=== PATIENT | male | born 1985 | race Caucasian/White ===

== ENCOUNTER 2017-10-14 00:05 | Inpatient (IN) | payer BC, OTHER ==
[~2017-10-14] VITALS: Ht 190.5 cm; Wt 92.5 kg
--- NOTE | 2017-10-14 00:05 | NUR ---
Pre admission note Pt seen in intake office. Pt appears intoxicated but in stable condition. V/S WNL. Policies on medication disposal explained to and understood by patient. Will admit to unit. Will continue to monitor.
--- NOTE | 2017-10-14 00:20 | NUR ---
Admission note Pt is a 31 yo male, A+Ox4, presenting to [facility] for ETOH/Benzo withdrawal. Pt has Allergies to Gluten, is on Full code status, and on Gluten free diet. Pt is 6'3" in height and 204 LBS. in weight. Pt has medical HX of HTN, Depression, Anxiety, Sleep apnea, and Asthma. Pt has family HX of Alcohol abuse from Mother. Pt has no primary care provider. Pt has been drinking alcohol for 12 years (5 months currently), has reached a level of 12-15 glasses of wine/daily, and last drink was "8 various drinks" on 10-13-17 @2100. Pt has been taking Ativan PO for 7 years (5 months currently), has reached a level of 0.5mg-1mg/daily, and last dose was 1mg on 10-13-17 @0600. Pt has been taking home medications, all of which have been reconciled in [facility]. Pt has HX of previous Detox/Rehab for 5 days in [place] in May 2017. Pt continued sobriety for 7 days to total 12 day sober and this was the pt's last time sober. Pt has never been a cigarette smoker. Pt appears intoxicated, well groomed, and having no apparent foul odor. Pt noted with flush face, sweat on forehead, dilated pupils, and s/s of anxiety, agitation, and restlessness. Pt is cooperative and compliant. Pt states "I need to quit drinking for the sake of my future." Pt states "I would like to go to Rehab after my treatment is completed here." Pt states "I used to be able to have just a couple of drinks here and there, but now i just binge for no reason. Pt denies any seizure, overdose, or delirium HX. Pt states "My common withdrawal symptoms are anxiety, depression, tremors, sweating, nausea, body aches." Pt stats "I live on my own." Pt states "I consider my family to be my support system." Pt has no HX of SI/HI. V/S WNL. Respirations even and unlabored. Will continue to monitor.
[2017-10-14 00:30] VITALS: BP 129/91
[2017-10-14] MEDS ORDERED: LORAZEPAM 2 MG/1 ML VIAL IM PRN (01:00)
[2017-10-14] MEDS ORDERED: ONDANSETRON 4 MG/2 ML VIAL IM PRN (01:00)
[2017-10-14] MEDS ORDERED: MIRALAX 17 GM POWD.PACK PO PRN (01:00)
[2017-10-14] MEDS ORDERED: LORAZEPAM 1 MG TABLET PO PRN ×2 (01:00)
[2017-10-14] MEDS ORDERED: DICYCLOMINE HCL 20 MG TABLET PO PRN (01:00)
[2017-10-14] MEDS ORDERED: ONDANSETRON ODT 4 MG TAB.RAPDIS SL PRN (01:00)
[2017-10-14] MEDS ORDERED: ACETAMINOPHEN 325 MG TABLET PO PRN (01:00)
[2017-10-14] MEDS ORDERED: MAG HYDROX/AL HYDROX/SIMETH 30 ML LIQUID UDC PO PRN (01:00)
[2017-10-14] MEDS ORDERED: diphenhydrAMINE 50 MG CAPSULE PO PRN (01:00)
[2017-10-14] MEDS ORDERED: THIAMINE HCL 200 MG/2 ML VIAL IM ONE (01:00)
[2017-10-14] MEDS ORDERED: IBUPROFEN 400 MG TABLET PO PRN (01:00)
[2017-10-14] MEDS ORDERED: MAGNESIUM HYDROXIDE 30 ML LIQUID UDC PO PRN (01:00)
[2017-10-14] MEDS ORDERED: LOPERAMIDE HCL 2 MG CAPSULE PO PRN (01:00)
[2017-10-14 01:13] LABS: BASOPHILS # (AUTO) 0.1 K/uL (0.0-8.0); BASOPHILS % (AUTO) 1.2 % (0.0-2.0); EOSINOPHILS % (AUTO) 0.7 % (0.0-7.0); HEMATOCRIT 44.9 % (36.7-47.1); HEMOGLOBIN 16.9 g/dL (12.5-16.3); LYMPHOCYTES # (AUTO) 2.4 K/uL (20.0-40.0); LYMPHOCYTES % (AUTO) 48.3 % (20.5-51.5); MEAN CORPUSCULAR HGB CONC 38 g/dL (32.5-36.3); MEAN CORPUSCULAR VOLUME 93.2 fL (73.0-96.2); MONOCYTES # (AUTO) 0.3 K/uL (2.0-10.0); MONOCYTES % (AUTO) 5.9 % (0.0-11.0); NEUTROPHILS # (AUTO) 2.2 K/uL (1.8-8.9); NEUTROPHILS % (AUTO) 43.9 % (38.5-71.5); PLATELET COUNT (AUTO) 228 K/uL (152-348); RED BLOOD CELL COUNT(AUTO) 4.82 MIL/uL (4.06-5.63); WHITE BLOOD COUNT (AUTO) 4.9 K/uL (3.6-10.2)
[2017-10-14 01:14] LABS: MEAN CORPUSCULAR HEMOGLOBIN 35.1 uug (23.8-33.4)
[2017-10-14 01:17] LABS: *AMPHETAMINE, URINE NEGATIVE (NEGATIVE); *BARBITURATE, URINE NEGATIVE (NEGATIVE); *CANNABINOID, URINE NEGATIVE (NEGATIVE); *COCCAINE, URINE NEGATIVE (NEGATIVE); *OPIATE, URINE NEGATIVE (NEGATIVE); *PHENCYCLIDINE SCREEN,URINE NEGATIVE (NEGATIVE)
[2017-10-14 01:27] LABS: THYROID STIMULATING HORMONE 1.857 mIU/mL (0.358-3.740)
[2017-10-14] MEDS ORDERED: LORA0.5T PO (02:18)
[2017-10-14] MEDS ORDERED: CETI-102 PO (02:18)
[2017-10-14] MEDS ORDERED: PEG15DRO2 OP (02:18)
[2017-10-14] MEDS ORDERED: ALBU18HF2 IH (02:18)
[2017-10-14] MEDS ORDERED: ONDA4TAB10 PO (02:18)
[2017-10-14] MEDS ORDERED: PARO10TA86 PO (02:18)
[2017-10-14] MEDS ORDERED: HYDR25TA4 PO (02:18)
[2017-10-14 04:25] VITALS: BP 124/85
--- NOTE | 2017-10-14 05:15 | NUR ---
PRN Ativan 1mg Pt c/o anxiety and noted with CIWA: 12. PRN Ativan 1mg given and tolerated well. Will reassess within 1 HR. Will continue to monitor.
--- NOTE | 2017-10-14 05:57 | NUR ---
PRN Ativan 1mg Reassessment Medication effective. Pt expresses reduction of anxiety with CIWA: 9. No s/s of ASE noted at this time. Respirations even and unlabored. Will continue to monitor.
--- NOTE | 2017-10-14 07:00 | NUR ---
End of shift note Newly admitted patient. Pt was continuously noted with anxiety, agitation, and restlessness. Pt remained in room for majority of remainder of shift except to get food from kitchen. Pt remained cooperative and compliant with all aspects of treatment. Pt is on PRN medications until further review from MD in AM. Pt was given PRN Ativan 1mg @0515. Pt slept for a total of 5 HRS. Last CIWA: 9 @0600. Respirations even and unlabored. Will endorse to day shift nurse.
--- NOTE | 2017-10-14 07:30 | NUR ---
Start of Shit Note Pt. is a 31 y/o male newly admitted for the medically managed withdrawal from ETOH and Benzodiazepines. Pt. is awaiting further assessment from MD brandt and currently ordered PRN Ativan to manage withdrawal symptoms. Endorsed pt. has a medical history of HTN, Anxiety, Depression, Sleep Apnea and Asthma. Endorsed pt. came in slightly intoxicated and last CIWA of 9 at 0600. Received pt. in room laying in bed face down with eyes closed. No signs of SOB noted. Pt. reactive to name and touch but immediately goes back to sleep. Bed position low, side rails up X [address] Will continue to monitor pt.'s behavior for safety.
[2017-10-14 08:00] VITALS: BP 137/91
--- NOTE | 2017-10-14 08:08 | NUR ---
PRN Medication Pt. in room, anxious constantly shifting in bed, irritable, complaining of 8/10 generalized pain. Pt. is currently scoring a CIWA of 21. PRN Ativan 2mg and Motrin given at this time for CIWA score >12 and pain. Will continue to monitor pt.'s behavior for safety, and medication effectiveness. Addendum: 10/14/17 at 1813 by HERBIE BARNES RN Note entered in error. Incorrect pt.
--- NOTE | 2017-10-14 08:55 | NUR ---
PRN Medication Pt. in room complaining of pain 11/09. Pt. states she feels a less anxious but that her body aches still hurt too much. Pt. states "the Motrin doesn't work enough for me." Pt. given Toradol IM 30mg on right deltoid at this time. Will continue to monitor pt.'s behavior for medication effective and safety. Addendum: 10/14/17 at 1813 by HERBIE BARNES RN Note entered in error. Incorrect pt.
[2017-10-14] MEDS: FOLIC ACID 1 MG TABLET PO SCH (09:05)
[2017-10-14] MEDS: THIAMINE HCL 100 MG TABLET PO SCH (09:05)
[2017-10-14] MEDS: MULTIVITAMINS,THERAPEUTIC TABLET PO SCH (09:05)
[2017-10-14] MEDS ORDERED: PATIENT MAY USE OWN MED- MD OK EACHEYE PRN (09:15)
--- NOTE | 2017-10-14 09:17 | NUR ---
PRN Medication Pt. in room pacing anxious, irritable, with flushed facial skin and dilated pupils. Pt.'s current CIWA 21. Gave 2 mg ativan per MD order. Will continue to monitor pt.'s behavior for safety.
[2017-10-14 09:43] LABS: POTASSIUM 3.7 mmol/L (3.5-5.1)
[2017-10-14 09:51] LABS: CREATININE 1.2 mg/dL (0.6-1.3)
[2017-10-14 09:52] LABS: BILIRUBIN,TOTAL 1.6 mg/dL (0.2-1.0); MAGNESIUM 1.8 mg/dL (1.8-2.4); TOTAL PROTEIN, SERUM 7.7 g/dL (6.4-8.2)
--- NOTE | 2017-10-14 10:00 | NUR ---
PRN Medication Pt. re-assessed for medication effectiveness. Pt. states that her pain is now at a 2/10. Medication effective, will continue to monitor for safety. Addendum: 10/14/17 at 1813 by HERBIE BARNES RN Note entered in error. Incorrect pt.
--- NOTE | 2017-10-14 10:30 | NUR ---
PRN Re-Assessment Pt. in room laying in bed with eyes closed. No signs of SOB noted at this time. Medication effective will continue to monitor pt. for safety.
[2017-10-14] MEDS ORDERED: NICOTINE 14 MG/24HR PATCH TD PRN (11:00)
[2017-10-14] MEDS ORDERED: NICOTINE POLACRILEX 4 MG GUM-PK OF TEN BC PRN (11:00)
[2017-10-14 12:00] VITALS: BP 144/109
[2017-10-14] MEDS: PAROXETINE HCL 10 MG TABLET PO SCH (12:03)
[2017-10-14] MEDS: LORAZEPAM 1 MG TABLET PO SCH ×3 (12:04→22:02)
--- NOTE | 2017-10-14 12:15 | NUR ---
PRN Medication Pt. complain of Nausea and reports 1 episode of emesis. Pt. s current blood 140/106. Gave pt. Zofran P.O. and Clonidine P.O. at this time. Will continue to monitor pt.'s behavior for safety and medication effectiveness.
[2017-10-14] MEDS: CETRIZINE 10 MG PO SCH (12:17)
[2017-10-14] MEDS: CLONIDINE HCL 0.1 MG TABLET PO PRN (12:17)
--- NOTE | 2017-10-14 13:30 | NUR ---
PRN Re-Assessment. Pt. Reports no nausea at this time, and blood pressure is currently 130/88. Medication effective. Will continue to monitor pt. for safety.
--- NOTE | 2017-10-14 16:35 | NUR ---
PRN Medication Pt. reported 3 episodes of diarrhea in the past hour. Gave pt. Imodium 4 mg per MD order. Will continue to monitor pt. for safety and medication effectiveness.
[2017-10-14] MEDS: LOPERAMIDE HCL 2 MG CAPSULE PO PRN (16:38)
[2017-10-14 16:41] VITALS: BP 148/105
--- NOTE | 2017-10-14 17:07 | NUR ---
Placed a call to RT department to follow up regarding the pt.'s CPAP device. RT informed this parts data writer that the assistant casino shift manager RT's would be coming up to set the Device up to the pt.'s comfort.
--- NOTE | 2017-10-14 18:25 | NUR ---
PRN Re-Assessment Pt. reports no more episodes of diarrhea. Medication effective. Will continue to monitor pt. for safety.
--- NOTE | 2017-10-14 19:21 | NUR ---
End of Shift Note Pt. is a 31 y/o male newly admitted for the medically managed withdrawal from ETOH and Benzodiazepines. assessed pt. in AM and ordered a 5 day Ativan taper which started today. Pt. noted with flushed facial skin and anxiety throughout shift. Pt. Medication compliant and treatment plan compliant. Pt. given PRN Ativan, Clonidine, Zofran, and Imodium . Pt. remained A/O x4 throughout shift. Pt.'s Last CIWA at 1600 was 21. Safety measures in place. Endorse pt.'s care to oncoming shift.
--- NOTE | 2017-10-14 19:22 | NUR ---
Start of shift note Received report from day shift nurse. Pt is a 31 yo male, A+Ox4, presenting to [facility] for ETOH/Benzo withdrawal. Pt noted to be anxious, agitated, restless, flushed in face, and sweaty. Pt has HX of HTN, Anxiety, Depression, Asthma, and sleep apnea, which will be monitored during shift. Pt is on 5 day Ativan taper, tolerated well. Respirations even and unlabored. Will continue to monitor.
[2017-10-14 20:08] VITALS: BP 124/82
--- NOTE | 2017-10-14 22:00 | NUR ---
Pt placed on CPAP at this time per pt request. Pt placed on V-60 on settings of CPAP 8 and FIO2-21%. No resp. distress noted. Pt appears to be tolerating CPAP well at this time. BVM at bedside. V-60 alarm parameters have been checked and remain audible. CLIENT RELATIONSHIP EXECUTIVE TIRE ASSEMBLER aware and notified of placement of CPAP for NOC.
[2017-10-15 00:12] VITALS: BP 142/87
--- NOTE | 2017-10-15 03:00 | NUR ---
Pt removed CPAP and is on room air at this time. No resp. distress noted at this time.
[2017-10-15 04:12] VITALS: BP 136/89
--- NOTE | 2017-10-15 07:00 | NUR ---
End of shift note Pt was continuously noted with restlessness, flushed face, sweating, anxiety, and agitation. Pt remained in room for majority of shift except to get food from kitchen. Pt remained compliant and cooperative with all aspects of care. Pt is on 5 day Ativan taper, tolerated well. Pt was not given any PRN medications during shift. Pt slept for a total of 10 HRS. Last CIWA: 11 @0400. Respirations even and unlabored. Will endorse to day shift nurse.
--- NOTE | 2017-10-15 07:30 | NUR ---
Start of Shift Legal Instruments Examiner received report on 31 year old male admitted to [facility] on 10/14/17 for the medical management of ETOH and Benzodiazepine withdrawals. Pt endorses full code, allergies to Gluten with a modified regular diet. Pt has a PMH of HTN, Asthma and Sleep Apnea. PPH of anxiety and depression. Pt on an Ativan taper, tolerating well, with last CIWA 11, recorded at 0400, per report. Pt was not administered any PRN medications on NOC shift, per report. Legal Instruments Examiner encounters pt in his room, A/O x4 and makes his needs known. Pt is calm and cooperative, with a normal affect and congruent mood. Linear thought process and clear speech. Pt endorses not sleeping well d/t the unfamiliar CPAP. Endorsing minor withdrawals including anxiety and nausea. Bed in low position with wheels locked and side rails up x2. Will continue to monitor, support and encourage according to plan of care.
[2017-10-15 08:02] VITALS: BP 143/108
[2017-10-15] MEDS ORDERED: TUBERCULIN,PURIF.PROT.DERIV. 5 TU/0.1 ML TEST ID ONE (09:00)
[2017-10-15] MEDS: FOLIC ACID 1 MG TABLET PO SCH (09:01)
[2017-10-15] MEDS: THIAMINE HCL 100 MG TABLET PO SCH (09:01)
[2017-10-15] MEDS: LORAZEPAM 1 MG TABLET PO SCH ×3 (09:01→20:56)
[2017-10-15] MEDS: CETRIZINE 10 MG PO SCH (09:01)
[2017-10-15] MEDS: PAROXETINE HCL 10 MG TABLET PO SCH (09:01)
[2017-10-15] MEDS: MULTIVITAMINS,THERAPEUTIC TABLET PO SCH (09:01)
[2017-10-15] MEDS: CLONIDINE HCL 0.1 MG TABLET PO PRN ×2 (09:01→20:56)
--- NOTE | 2017-10-15 09:01 | NUR ---
PRN Clonidine(HTN) Pt's BP 143/108 on routine check. Community Education Specialist administered medication to order with pt tolerating well. Will continue to monitor, support and encourage according to plan of care.
[2017-10-15 09:07] LABS: HEPATITIS B SURFACE AG Negative (Negative)
--- NOTE | 2017-10-15 10:05 | NUR ---
PRN Re-Assessment Pt's BP re-assessed: 147/107 with Pulse 118. MD notified, will receive new orders. Will continue to monitor, support and encourage according to plan of care.
[2017-10-15] MEDS ORDERED: hydrALAZINE HCL 50 MG TABLET PO PRN (12:15)
[2017-10-15 12:30] VITALS: BP 154/101
[2017-10-15] MEDS: AMLODIPINE 5 MG TABLET PO SCH (13:13)
--- NOTE | 2017-10-15 15:02 | NUR ---
PRN Apresoline Pt's BP 160/108 with P: 119, administered medication per MD order with pt tolerating well. Will continue to monitor, support and encourage according to plan of care.
[2017-10-15 16:00] VITALS: BP 141/95
--- NOTE | 2017-10-15 16:02 | NUR ---
PRN Re-Assessment Medication effective. Pt's BP 141/95 on re-check, pt asymptomatic. Will continue to monitor, support and encourage according to plan of care.
--- NOTE | 2017-10-15 19:15 | NUR ---
Start of Shift Note: Received patient from day shift nurse. Patient is a 31 y.o male admitted for ETOH and Benzo withdrawals. Patient is alert & oriented x4. Patient has a flushed face, blunt affect and anxious mood. Patient presented with anxiety, irritability, clammy/moist skin & fine tremors. Pt continues his 5-day Ativan taper and tolerating well. Last CIWA is 8. Pt received Clonidine, Apresoline & Norvasc for increased BP during the day. Pt is on CPAP at night for sleep apnea. Pt stable at this time. Continue to encourage pt to increase fluid intake as tolerated for hydration. Will continue to encourage participation in group therapy to prevent relapse. Educated patient of current plan of care for the night and medication regimen. Safety precaution in place. Bed locked in lowest position. Both side rails up. Call light within pt's reach. Will continue to monitor patient.
--- NOTE | 2017-10-15 19:27 | NUR ---
End of Shift Maintenance Worker [employer] provided report on 31 year old male admitted to [facility] on 10/14/17 for the medical management of ETOH and Benzodiazepine withdrawals. Pt endorses full code, allergies to Gluten with a modified regular diet. Pt has a PMH of HTN, Asthma and Sleep Apnea. PPH of anxiety and depression. Pt on an Ativan taper, tolerating well, with last CIWA 8, recorded at 1630. Pt was administered Clonidine(HTN) and Apresoline(HTN) on this shift. Pt is A/O x4 and makes his needs known. Pt is calm and cooperative, with a normal affect and congruent mood. Linear thought process and clear speech. Pt has been pleasant and polite all day. Social with peers and visible on the unit. Bed in low position with wheels locked and side rails up x2.
[2017-10-15 20:00] VITALS: BP 156/98
--- NOTE | 2017-10-15 20:56 | NUR ---
PRN Clonidine Patient noted with increased BP= 156/98, MT 125, O2Sat 98%. PRN Clonidine administered as ordered. Will monitor for effectiveness of medication.
--- NOTE | 2017-10-15 21:56 | NUR ---
PRN Reassessment Reassessed Vitals. B/P 132/76 MD 98, O2Sat 95%. Pt in bed and appears comfortable. Safety measures in place. Will continue to monitor patient.
[2017-10-16] VITALS: BP 110/69
[2017-10-16 04:00] VITALS: BP 118/75
[2017-10-16 07:14] LABS: BILIRUBIN,DIRECT 0.5 mg/dL (0.0-0.2); BILIRUBIN,TOTAL 1.2 mg/dL (0.2-1.0); MAGNESIUM 1.9 mg/dL (1.8-2.4); POTASSIUM 3.4 mmol/L (3.5-5.1); TOTAL PROTEIN, SERUM 7.4 g/dL (6.4-8.2)
--- NOTE | 2017-10-16 07:16 | NUR ---
End of Shift Note: Continue to closely monitor patient. Patient still asleep at this time. During my shift, he presented with anxiety, irritability, clammy/moist skin & fine tremors. He continues on his 5-day Ativan taper and tolerating well. Pt received PRN Clonidine for increased BP and was effective. Last CIWA 8. Pt remains compliant with medications. Encourage to increase fluid intake as well as tolerated. Pt slept for a total of 8 hours. Fluid intake: 1296 ml, Voided 1x with 1x bowel movement. All needs attended & met. Safety measures in place. Will endorse pt to day shift nurse.
[2017-10-16 07:29] LABS: BILIRUBIN,DIRECT 0.5 mg/dL (0.0-0.2); BILIRUBIN,TOTAL 1.1 mg/dL (0.2-1.0)
--- NOTE | 2017-10-16 07:30 | NUR ---
START OF SHIFT Pt 31 y/o male admitted for etoh/ benzo withdrawal. Pt received in room awake watching television. Pt alert and oriented to name, place, and time. Perrla. Skin warm and moist to touch. Respirations even and unlabored. Bilateral hand tremors noted. Pt appears disheveled. Empty drink bottles scattered throughout the room. Encouraged to maintain hygiene. Pt anxious this morning with pressured speech noted. Cpap in room at bedside. It was reported that pt slept for 8 hours last night. Last reported ciwa=8 @ 2100. Pt is on a 5 day ativan taper and is on day 3. Bed on lowest position with side rails x2 up for safety. Call light within reach.
[2017-10-16 08:00] VITALS: BP 141/92
[2017-10-16] MEDS: CETRIZINE 10 MG PO SCH (08:48)
[2017-10-16] MEDS: MULTIVITAMINS,THERAPEUTIC TABLET PO SCH (08:49)
[2017-10-16] MEDS: THIAMINE HCL 100 MG TABLET PO SCH (08:49)
[2017-10-16] MEDS: PAROXETINE HCL 10 MG TABLET PO SCH (08:49)
[2017-10-16] MEDS: LORAZEPAM 1 MG TABLET PO SCH ×2 (08:49→12:00)
[2017-10-16] MEDS: FOLIC ACID 1 MG TABLET PO SCH (08:49)
[2017-10-16] MEDS: AMLODIPINE 5 MG TABLET PO SCH (08:49)
[2017-10-16] MEDS: CLONIDINE HCL 0.1 MG TABLET PO PRN (09:47)
--- NOTE | 2017-10-16 09:48 | NUR ---
PRN Pt with jp=824/107. Catapres po prn per MD order given and tolerated well.
--- NOTE | 2017-10-16 10:48 | NUR ---
PRN EVAL Pt with ro=250/78
[2017-10-16] MEDS ORDERED: MAGNESIUM OXIDE 400 MG TABLET PO ONE (11:30)
[2017-10-16] MEDS ORDERED: POTASSIUM CHLORIDE 10 MEQ TAB.PRT.SR PO ONE (11:30)
[2017-10-16 12:00] VITALS: BP 141/92
--- NOTE | 2017-10-16 12:02 | NUR ---
ONE MD aware with labs: k+=3.4 with new orders for k-dur po and mg po per MD order given and tolerated well.
[2017-10-16 16:00] VITALS: BP 129/84
[2017-10-16] MEDS: LOPERAMIDE HCL 2 MG CAPSULE PO PRN (16:16)
--- NOTE | 2017-10-16 16:30 | NUR ---
PRN Pt states has headache 4/10. Motrin po prn per MD order given and tolerated well.
--- NOTE | 2017-10-16 16:30 | NUR ---
PRN Pt with diarrhea episode x1. Immodium po prn per MD order given and tolerated well.
[2017-10-16] MEDS ORDERED: LORAZEPAM 1 MG TABLET PO SCH ×2 (17:00→21:00)
--- NOTE | 2017-10-16 17:30 | NUR ---
PRN FANG Pt states pain 06/12.
--- NOTE | 2017-10-16 17:30 | NUR ---
PRN FANG Pt denies any diarrhea episode at this time.
--- NOTE | 2017-10-16 18:34 | NUR ---
END OF SHIFT Pt 31 y/o male admitted for etoh/ benzo withdrawal. Pt alert and oriented to name, place, and time. Perrla. Skin warm and moist to touch. Respirations even and unlabored. Bilateral hand tremors noted. Pt appears disheveled. Food wrappings and empty drink bottles scattered throughout the room. Pt with periods of anxiety throughout the morning. Encouraged to maintain hygiene. Pt observed mostly in room throughout the day. Pt attended group activity today. Pt was seen by MD today. Pt medication compliant and tolerated well. No ASE noted. Mg and K+ was replaced today. Pt also with c/o headache and was given motrin po prn per MD order given and tolerated well. Pt also with diarrhea episode x1 this afternoon and was given immodium po prn per MD order. Pt is on a 5 day ativan taper and is on day 3. Ciwas=6@0800, 6@1200, and 6@1600. Bed on lowest position with side rails x2 up for safety. Call light within reach.
--- NOTE | 2017-10-16 19:15 | NUR ---
Start of Shift Note: Received patient from day shift nurse. Patient is a 31 y.o male admitted for ETOH and Benzo withdrawals. He is alert & oriented x4. Patient has a blunt affect and anxious mood. Skin is moist/clammy. Pt continues his 5-day Ativan taper and tolerating well. Last CIWA is 6. Pt received Motrin for pain, Immodium for diarrhea & Clonidine for increased BP. All PRN medications given were effective per report. Pt is on CPAP at night for sleep apnea. Pt stable at this time. No shortness of breath noted. Continue to encourage pt to increase fluid intake as tolerated for hydration. Will continue to encourage participation in group therapy to prevent relapse. Educated patient of current plan of care for the night and medication regimen. Safety precaution in place. Bed locked in lowest position. Both side rails up. Call light within pt's reach. Will continue to monitor patient.
[2017-10-16 20:00] VITALS: BP 149/93
[2017-10-16] MEDS ORDERED: AMLODIPINE 5 MG TABLET PO SCH (21:00)
--- NOTE | 2017-10-17 02:10 | NUR ---
PT REFUSED CPAP
[2017-10-17 04:00] VITALS: BP 132/84
--- NOTE | 2017-10-17 07:14 | NUR ---
End of Shift Note: Continue to closely monitor patient. Patient still asleep at this time. Pt remains alert & oriented x4. He remains stable and continues to present a blunt affect and anxious mood. He continues on his 5-day Ativan taper and tolerating well. No PRN medications received during my shfit. Last CIWA 6. Pt remains compliant with medications. Pt refused CPAP at around 0200am d/t alarm keeps him awake. Encourage to increase fluid intake as tolerated. Pt slept for a total of 7 hours. Fluid intake: 1250 ml, Voided 5x with no bowel movement. All needs attended & met. Safety measures in place. Will endorse pt to day shift nurse.
[2017-10-17 08:00] VITALS: BP 129/79
--- NOTE | 2017-10-17 08:15 | NUR ---
START OF SHIFT: RECEIVED PT A/O X 4. HE PRESENT WITH ANXIOUS MOD AND CONGRUENT AFFECT. HE IS RESTLESS AND FIDGETY. HE REPORTS SOME DIARRHEA LAST NIGHT BUT STATES HE HAS NOT HAD ANY BOUTS THIS AM. HE REPORTS SOME ANXIETY AND STATES DETOX MEDS ARE EFFECTIVE IN REDUCING ANXIETY. CIWA 8 ATIVAN TAPER IN PROGRESS. WILL CONTINUE TO MONITOR AND MANAGE S/S OF W/D.
[2017-10-17] MEDS: MULTIVITAMINS,THERAPEUTIC TABLET PO SCH (09:22)
[2017-10-17] MEDS: AMLODIPINE 10 MG TABLET PO SCH (09:23)
[2017-10-17] MEDS: THIAMINE HCL 100 MG TABLET PO SCH (09:23)
[2017-10-17] MEDS: CETRIZINE 10 MG PO SCH (09:23)
[2017-10-17] MEDS: LORAZEPAM 1 MG TABLET PO SCH ×3 (09:23→21:38)
[2017-10-17] MEDS: PAROXETINE HCL 10 MG TABLET PO SCH (09:24)
[2017-10-17] MEDS: FOLIC ACID 1 MG TABLET PO SCH (09:24)
[2017-10-17] MEDS: TETRAHYDROZOLINE 0.05% OPHT DR 15 ML BOTTLE OP PRN (09:28)
[2017-10-17] MEDS: VENTOLIN MDI INH PRN (09:28)
[2017-10-17 12:00] VITALS: BP 148/106
[2017-10-17] MEDS: CLONIDINE HCL 0.1 MG TABLET PO PRN (12:04)
--- NOTE | 2017-10-17 15:34 | NUR ---
Client was prompted to attend group counseling sessions.
[2017-10-17 16:00] VITALS: BP 131/85
--- NOTE | 2017-10-17 18:53 | NUR ---
END OF SHIFT: PT CONTINUES ON ATIVAN TAPER TO MANAGE S/S OF W/D WHICH INCLUDE ANXIETY,RESTLESSNESS AND IRRITABILITY. HE STATES THE ATIVAN IS EFFECTIVE IN REDUCING S/S OF W/D. LAST CIWA 6. HE ATTENDED GROUPS AND INTERACTED WITH PEERS. WILL PASS SHIFT REPORT TO ONCOMING NIGHT NURSE.
--- NOTE | 2017-10-17 19:45 | NUR ---
Start of Shift Note Received a 31 y/o male px, admitted for medically supervised withdrawal from ETOH and Ativan. Px was placed on 5 day Ativan taper started 10/14/2017. Px is tolerating it. Last reported CIWA 6 by AM shift nurse. During the rounds at 1945, px is awake inside his room standing. Px has good eye contact. Few drinks noted on top of his bed side table. Px stated "my anxiety is 2/10. Can I have Benadryl later?" No complaints made. Bed on lowest position, side rails up 2x and call light within reach. We'll continue to monitor.
[2017-10-17 20:00] VITALS: BP 138/94
--- NOTE | 2017-10-17 21:38 | NUR ---
PRN Benadryl Px received Benadryl 50 mg/cap, 1 cap PO as PRN for insomnia. We'll continue to monitor.
[2017-10-18] VITALS (8 sets, daily range): BP systolic 110–143; BP diastolic 66–95
--- NOTE | 2017-10-18 07:10 | NUR ---
End of Shift Note During the shift at 2137, px received Benadryl 50 mg PO for insomnia. It was effective. Px's oral intake is 1 L, voided 3x, without BM. Px slept for 8.5 hours. At 0630, px is asleep on bed in fowlers position. Last CIWA 7. Bed on lowest position, side rails up 2x and call light within reach. We'll continue to monitor. Px endorsed to AM shift nurse.
--- NOTE | 2017-10-18 07:40 | NUR ---
START OF SHIFT 318 Received report from sap trainer nurse. Pt is lying in bed and easily arousable. He is a 31 [address] to [facility] on 10/14 for ETOH and BZD withdrawal. He continues on a 5 day Ativan taper. Pt is observed with facial flushing, moist skin, mild tremors, and reports anxiety with restlessness. He has a flat affect and depressed mood. Pt slept for 8 hours. Safety measures in place.
[2017-10-18] MEDS ORDERED: LORAZEPAM 1 MG TABLET PO SCH (09:00)
[2017-10-18] MEDS: FOLIC ACID 1 MG TABLET PO SCH (09:20)
[2017-10-18] MEDS: AMLODIPINE 10 MG TABLET PO SCH (09:21)
[2017-10-18] MEDS: THIAMINE HCL 100 MG TABLET PO SCH (09:22)
[2017-10-18] MEDS: CETIRIZINE HCL 10 MG TABLET PO SCH (09:22)
[2017-10-18] MEDS: MULTIVITAMINS,THERAPEUTIC TABLET PO SCH (09:22)
[2017-10-18] MEDS: PAROXETINE HCL 10 MG TABLET PO SCH (09:22)
[2017-10-18] MEDS: VENTOLIN MDI INH PRN ×2 (09:24→19:09)
[2017-10-18] MEDS: TETRAHYDROZOLINE 0.05% OPHT DR 15 ML BOTTLE OP PRN (09:25)
--- NOTE | 2017-10-18 09:26 | NUR ---
PRN Ventolin inhaler and Visine Pt reports mild SOB and dry eyes. PRN inhaler and Visine administered.
--- NOTE | 2017-10-18 10:05 | NUR ---
PRN Inhaler and Visine reassessment PRN Inhaler and Visine effective. Pt reports SOB and dry eyes are relieved.
[2017-10-18] MEDS ORDERED: HYDROXYZINE PAMOATE 25 MG CAPSULE PO PRN (10:45)
[2017-10-18] MEDS ORDERED: GABAPENTIN 300 MG CAPSULE PO SCH (13:00)
[2017-10-18] MEDS: CLONIDINE HCL 0.1 MG TABLET PO PRN ×2 (13:04→19:08)
--- NOTE | 2017-10-18 13:07 | NUR ---
PRN Clonidine Pt's B/P is 143/95 and HR 102. PRN Clonidine administered.
[2017-10-18] MEDS ORDERED: CLON0.1T14 PO (13:57)
[2017-10-18] MEDS ORDERED: IBUP-1953 PO (13:57)
[2017-10-18] MEDS ORDERED: CETI10TA14 PO (13:57)
[2017-10-18] MEDS ORDERED: GABA-534 PO (13:57)
[2017-10-18] MEDS ORDERED: AMLO10TA2 PO (13:57)
[2017-10-18] MEDS ORDERED: DIPH50CA37 PO (13:57)
[2017-10-18] MEDS ORDERED: HYDR-3895 PO (13:57)
--- NOTE | 2017-10-18 14:05 | NUR ---
PRN Clonidine reassessment PRN Clonidine effective. Pt's B/P 132/80 and HR 89.
--- NOTE | 2017-10-18 18:49 | NUR ---
END OF SHIFT Report provided to plant operator/shift supervisor nurse. Pt is in his room room watching TV. He is a 31 yo male admitted to [facility] on 10/14 for ETOH and BZD withdrawal. 5 day Ativan taper completed to day and he is scheduled for discharge tomorrow. Pt had facial flushing, mild tremors, and anxiety. Elevated B/P and anxiety treated with PRN Clonidine x2 and effective. Also administered PRN Ventolin inhaler x2 and Vistaril. Last CIWA was 6. He drank 2250mL and ate 100% of meals. Safety measures in place.
--- NOTE | 2017-10-18 19:10 | NUR ---
PRN Clonidine, Vistaril, and Inhaler Pt reports feeling anxious, restless, with mild SOB. He is observed with facial flushing. B/P 135/93 and HR 91. PRN Clonidine, Vistaril, and Inhaler administered.
--- NOTE | 2017-10-18 20:10 | NUR ---
START OF SHIFT NOTE /PRN CLONIDINE , VISTARIL AND INHALER RE-ASSESSMENT RECEIVED REPORT FROM DAY SHIFT NURSE. PATIENT COMPLETED 5 DAY ATIVAN TAPER. PATIENT IS MEDICALLY CLEARED TO BE DISCHARGE TOMORROW. PATIENT ON C-PAP AT NIGHT . PATIENT WAS GIVEN PRN CLONIDINE/VISTARIL AND INHALER, ALL HELPFUL AND EFFECTIVE. LAST CIWA 6. PATIENT ALERT AND ORIENTED X 4. RESPIRATION EVEN AND UNLABORED. NO SOB. PATIENT STATES HE WAS ANXIOUS EARLIER AND PRN MEDICATION EFFECTIVE. HE ATTENDED GROUPS. SAFETY MEASURES IN PLACE. CALL LIGHT IN REACH. WILL CONTINUE TO MONITOR
[2017-10-18] MEDS: GABAPENTIN 300 MG CAPSULE PO SCH (20:41)
[2017-10-19] VITALS: BP 98/62
--- NOTE | 2017-10-19 | NUR ---
CIWA DEFERRED PATIENT SLEEPING. RESPIRATION EVEN AND UNLABORED. VS REFUSED. WILL CONTINUE TO MONITOR
--- NOTE | 2017-10-19 04:00 | NUR ---
CIWA DEFERRED PATIENT SLEEPING. RESPIRATION EVEN AND UNLABORED. VS REFUSED. WILL CONTINUE TO MONITOR
--- NOTE | 2017-10-19 07:16 | NUR ---
END OF SHIFT NOTE PATIENT SLEPT 8 HOURS. FLUID INTAKE 1,500 ML. VOIDED X 2. NO BM. PATIENT COMPLETED 5 DAY ATIVAN TAPER, TOLERATED WELL AND NO ADVERSE REACTION. PATIENT IS MEDICALLY CLEARED TO BE DISCHARGE TODAY. PATIENT ON C-PAP AT NIGHT . PATIENT IN THE ROOM MOST OF THE SHIFT. PATIENT COMPLIANT WITH MEDICATION AND TREATMENT PLAN. PATIENT DID NOT REQUIRE PRN MEDICATION. LAST CIWA 6. SAFETY MEASURES IN PLACE. CALL LIGHT IN REACH. WILL CONTINUE TO MONITOR
[2017-10-19 08:03] VITALS: BP 130/86
--- NOTE | 2017-10-19 08:15 | NUR ---
START OF SHIFT: RECEIVED PT A/O X 4. HE PRESENT WITH ANXIOUS MOD AND CONGRUENT AFFECT. HE REPORTS SOME ANXIETY ABOUT DISCHARGE THIS AM BUT STATES HE IS MOTIVATED TO STAY SOBER. CIWA 6 ATIVAN TAPER COMPLETED YESTERDAY. WILL CONTINUE TO PROCEED WITH DISCHARGE PLANNING FOR THIS MORNING. WILL MEDICATE ORDERED.
[2017-10-19] MEDS: PAROXETINE HCL 10 MG TABLET PO SCH (08:46)
[2017-10-19] MEDS: CETIRIZINE HCL 10 MG TABLET PO SCH (08:47)
[2017-10-19] MEDS: GABAPENTIN 300 MG CAPSULE PO SCH (08:47)
[2017-10-19] MEDS: FOLIC ACID 1 MG TABLET PO SCH (08:47)
[2017-10-19] MEDS: MULTIVITAMINS,THERAPEUTIC TABLET PO SCH (08:47)
[2017-10-19] MEDS: AMLODIPINE 10 MG TABLET PO SCH (08:47)
[2017-10-19] MEDS: THIAMINE HCL 100 MG TABLET PO SCH (08:48)
[2017-10-19 08:58] VITALS: BP 130/86
[2017-10-19] MEDS: CLONIDINE HCL 0.1 MG TABLET PO PRN (08:58)
--- NOTE | 2017-10-19 10:00 | NUR ---
DISCHARGE: PT IS A/O X 4. HE DENIES S/I AND H/I. HE STATES HE FEELS ENTHUSIASTIC TOWARD RECOVERY. BELONGINGS RETURNED. EDUCATED PT ON DISCHARGE MEDS AND INSTRUCTIONS. PT EXPRESSED VERBAL UNDERSTANDING OF EDUCATION . FILING OR REGISTRY CLERK ESCORTED PT TO [facility] WHERE HE WAS TRANSPORTED BY [facility] TO [facility] AT 0945.
== END 2017-10-19 09:45 | disposition other institution (70) | DRG 895 ==
LOC: SRC 00:05
PROVIDERS: ADMIT Internal Medicine; ATTEND Internal Medicine
PROC: HZ2ZZZZ Detoxification Services for Substance Abuse Treatment (ICD-10-PCS; principal; 2017-10-14)
PROC: HZ41ZZZ Group Counseling for Substance Abuse Treatment, Behavioral (ICD-10-PCS; principal; 2017-10-14)
PROC: 5A09357 Assistance with Respiratory Ventilation, Less than 24 Consecutive Hours, Continuous Positive Airway Pressure (ICD-10-PCS; principal; 2017-10-14)
DX: F10.232 Alcohol dependence with withdrawal with perceptual disturbance (principal); K85.20 Alcohol induced acute pancreatitis without necrosis or infection; E87.1 Hypo-osmolality and hyponatremia; K70.10 Alcoholic hepatitis without ascites; Y90.7 Blood alcohol level of 200-239 mg/100 ml; R73.9 Hyperglycemia, unspecified; E83.42 Hypomagnesemia; J45.20 Mild intermittent asthma, uncomplicated; Z81.1 Family history of alcohol abuse and dependence; F17.210 Nicotine dependence, cigarettes, uncomplicated; F41.9 Anxiety disorder, unspecified; G47.33 Obstructive sleep apnea (adult) (pediatric); Z79.51 Long term (current) use of inhaled steroids; Z79.899 Other long term (current) drug therapy; F13.10 Sedative, hypnotic or anxiolytic abuse, uncomplicated; E86.0 Dehydration; D75.89 Other specified diseases of blood and blood-forming organs; I15.9 Secondary hypertension, unspecified; F32.9 Major depressive disorder, single episode, unspecified
CPT/HCPCS: 36415; 70030-TC; 80307; 82746; 83690; 83735; 84443; 85025; 85610; 86592; 86705; 86803; 87340; 87806; A9150; G0480; Q0162; Q0163